=== PATIENT | female | born 1995 | race Caucasian/White ===

== ENCOUNTER 2020-04-03 20:42 | Emergency (ER) | payer BC, OTHER ==
[2020-04-03 20:50] VITALS: BP 120/71
--- NOTE | 2020-04-03 20:54 | ER Document Report ---
ED Medical Screen (RME) - General Chief Complaint: Abdominal Pain Stated Complaint: ABDOMINAL PAIN Time Seen by Provider: 04/03/20 20:50 Primary Care Provider: FRANCK CORREIA NP [Primary Care Provider] - Follow up as needed Mode of Arrival: Ambulatory Information source: Patient Notes: 25-year-old female presented to ED for bilateral pelvic pain. She states her la st menstrual cycle was March 18 through the and the pelvic pain started on the face. She states she has since then gone to her primary care doctor and they were supposed to do a pelvic exam but because she was having the pelvic pain the doctor did some blood work but did not do the pelvic exam told her she was going to send her out for pelvic exam ultrasound. She states she is not gotten back to her she has not had a transvaginal ultrasound and the pain is not getting any better. We will do blood urine and a transvaginal ultrasound tonight and she will be seen by another provider. She states she also started with NuvaRing and she has a clear to white discharge. I have greeted and performed a rapid initial assessment of this patient. A comprehensive ED assessment and evaluation of the patient, analysis of test results and completion of medical decision making process will be conducted by an additional ED providers. TRAVEL OUTSIDE OF THE [place] IN LAST 30 DAYS: No - Related Data Allergies/Adverse Reactions: No Known Allergies Allergy (Unverified 09/12/13 18:30) Past Medical History Psychiatric Medical History: Reports: Hx Anxiety Past Surgical History: Reports: Hx Adenoidectomy, Hx Tonsillectomy - Immunizations Immunizations up to date: Yes Hx Diphtheria, Pertussis, Tetanus Vaccination: No Physical Exam - Vital signs Vitals: Temp Pulse Resp BP Pulse Ox 98.2 F 93 12 120/71 100 04/03/20 20:49 04/03/20 20:49 04/03/20 20:49 04/03/20 20:49 04/03/20 20:49 Course - Vital Signs Vital signs: Temp Pulse Resp BP Pulse Ox 98.2 F 93 12 120/71 100 04/03/20 20:49 04/03/20 20:49 04/03/20 20:49 04/03/20 20:49 04/03/20 20:49 Doctor's Discharge - Discharge Referrals: MASOOD,FRANCK, SOUS CHEF [Primary Care Provider] - Follow up as needed
[2020-04-03 21:17] LABS: ABSOLUTE BASOPHILS # (AUTO) 0.1 10^3/uL (0.0-0.2); ABSOLUTE EOSINOPHILS # (AUTO) 0.2 10^3/uL (0.0-0.6); ABSOLUTE LYMPHOCYTES (AUTO) 2.8 10^3/uL (0.5-4.7); ABSOLUTE MONOCYTES (AUTO) 0.5 10^3/uL (0.1-1.4); ABSOLUTE NEUT (AUTO) 3.8 10^3/uL (1.7-8.2); BASOPHILS % (AUTO) 1.2 % (0-2); EOSINOPHILS % (AUTO) 3.2 % (0-6); HEMATOCRIT 38.5 % (36.0-47.0); HEMOGLOBIN 13.4 g/dL (12.0-15.5); LYMPHOCYTES % (AUTO) 38.1 % (13-45); MEAN CORPUSCULAR HEMOGLOBIN 30.1 pg (27.0-33.4); MEAN CORPUSCULAR HGB CONC 34.9 g/dL (32.0-36.0); MEAN CORPUSCULAR VOLUME 86 fl (80-97); MONOCYTES % (AUTO) 6.2 % (3-13); PLATELET COUNT 222 10^3/uL (150-450); RED BLOOD COUNT 4.47 10^6/uL (3.72-5.28); SEGMENTED NEUTROPHILS % (AUTO) 51.3 % (42-78); TOTAL CELLS COUNTED % (AUTO) 100 %; WHITE BLOOD COUNT 7.3 10^3/uL (4.0-10.5)
[2020-04-03 21:21] LABS: APPEARANCE,URINE CLEAR; BILIRUBIN,URINE NEGATIVE (NEGATIVE); COLOR,URINE YELLOW; GLUCOSE, URINE NEGATIVE (NEGATIVE); KETONES,URINE NEGATIVE (NEGATIVE); LEUKOCYTE ESTERASE,URINE NEGATIVE (NEGATIVE); NITRITE,URINE NEGATIVE (NEGATIVE); PROTEIN,URINE NEGATIVE (NEGATIVE); URINE SPECIFIC GRAVITY 1.015; UROBILINOGEN,URINE NEGATIVE mg/dL (<2.0)
[2020-04-03 21:33] LABS: ALBUMIN 4.9 g/dL (3.5-5.0); ALKALINE PHOSPHATASE 39 U/L (38-126); ANION GAP 10 (5-19); ASPARTATE AMINO TRANSFERASE 20 U/L (14-36); BILIRUBIN,TOTAL 0.3 mg/dL (0.2-1.3); BLOOD UREA NITROGEN 15 mg/dL (7-20); CALCIUM 9.2 mg/dL (8.4-10.2); CARBON DIOXIDE 25 mmol/L (22-30); CHLORIDE 106 mmol/L (98-107); GLUCOSE 137 mg/dL (75-110); POTASSIUM 3.7 mmol/L (3.6-5.0); TOTAL PROTEIN 7.7 g/dL (6.3-8.2)
--- NOTE | 2020-04-03 22:00 | RADIOLOGY REPORT (SQ) ---
Ultrasound pelvis transvaginal on 04/03/2020 at 9:14 PM CLINICAL INDICATION: Pelvic pain since last menstruation COMPARISON: None FINDINGS: Multiple sonographic images are obtained throughout the pelvis by transvaginal approach, both transverse and sagittal images are obtained. The uterus measures approximately 8.0 x 3.7 x 5.5 cm. Endometrial stripe measures 8 mm which is within normal limits. Uterine myometrium appears homogeneous. Small amount of free fluid in the pelvis is likely physiologic. The right ovary measures approximately 2.6 x 2.4 x 1.5 cm. Flow is demonstrated within the right ovary. Left ovary measures approximately 5.0 x 3.2 x 3.4 cm. Within the left ovary there is a simple 2.5 x 2.2 x 2.0 cm dominant follicle which should be considered benign with no follow-up recommended. Flow is demonstrated in the left ovary. IMPRESSION: Essentially unremarkable exam.
--- NOTE | 2020-04-03 22:13 | ER Document Report ---
ED GI/ - General Chief Complaint: Lower Abdominal Pain Stated Complaint: ABDOMINAL PAIN Time Seen by Provider: 04/03/20 20:50 Primary Care Provider: FRANCK CORREIA NP [Primary Care Provider] - Follow up as needed Mode of Arrival: Ambulatory Notes: CHIEF COMPLAINT: Pelvic pain for 1 week HPI: 25-year-old female presenting for evaluation of pelvic pain for 1 week intermittent sharp cramping over the suprapubic region with clear vaginal discharge. Soft GEOGRAPHY INSTRUCTOR who referred the patient for pelvic ultrasound, states mother had history of ovarian cysts. No vaginal bleeding currently. Denies fever nausea vomiting. Denies dysuria ROS: See HPI - all other systems were reviewed and are otherwise negative Constitutional: no fever or recent illness Eyes: no drainage, no blurred vision ENT: no runny nose, no sore throat Cardiovascular: no chest pain Resp: no SOB, no cough GI: no vomiting, no diarrhea : no dysuria, + vaginal discharge, positive pelvic pain Integumentary: no rash Allergy: no hives Musculoskeletal: no extremity pain or swelling Neurological: no numbness/tingling, no weakness MEDICATIONS: I agree with the patient medications as charted by the RN. ALLERGIES: I agree with the allergies as charted by the RN. PAST MEDICAL HISTORY/PAST SURGICAL HISTORY: Reviewed and agree as charted by RN. SOCIAL HISTORY: Reviewed and agree as charted by RN. FAMILY HISTORY: No significant familial comorbid conditions directly related to patient complaint EXAM: Reviewed vital signs as charted by RN. CONSTITUTIONAL: Alert and oriented and responds appropriately to questions. Well-appearing; well-nourished HEAD: Normocephalic; atraumatic EYES: PERRL; Conjunctivae clear, sclerae non-icteric ENT: normal nose; no rhinorrhea; moist mucous membranes; pharynx without lesions noted NECK: Supple without meningismus; non-tender; no cervical lymphadenopathy, no masses CARD: RRR; no murmurs, no clicks, no rubs, no gallops; symmetric distal pulses RESP: Normal chest excursion without splinting or tachypnea; breath sounds clear and equal bilaterally; no wheezes, no rhonchi, no rales, ABD/GI: Normal bowel sounds; non-distended; soft, non-tender, no rebound, no guarding; no palpable organomegaly or masses : Female nurse hot wort settler present. External genitalia normal. No skin lesions noted. Pelvic Exam: No active bleeding. No purulent discharge. Cervix appears normal. No CMT. No lesions or masses. Uterus normal size and non tender. Right/Left adnexa normal size and non tender. BACK: The back appears normal and is non-tender to palpation, there is no CVA tenderness EXT: Normal ROM in all joints; non-tender to palpation; no cyanosis, no effusions, no edema SKIN: Normal color for age and race; warm; dry; good turgor; no acute lesions noted NEURO: Moves all extremities equally; Motor and sensory function intact PSYCH: The patient's mood and manner are appropriate. Grooming and personal hygiene are appropriate. MDM: 25-year-old female presenting for pelvic pain over the last week. Patient noted to have a 2 cm ovarian cyst on the left on ultrasound. Not . Lab work ordered in the triage process negative for acute findings. Awaiting wet prep to rule out vaginitis. Likely to be discharged home to follow-up with her GEOGRAPHY INSTRUCTOR. TRAVEL OUTSIDE OF THE [place] IN LAST 30 DAYS: No - Related Data Allergies/Adverse Reactions: No Known Allergies Allergy (Unverified 09/12/13 18:30) Past Medical History - General Information source: Patient - Social History Smoking Status: Never Smoker Chew tobacco use (# tins/day): No Frequency of alcohol use: None Drug Abuse: None Family History: Reviewed & Not Pertinent Psychiatric Medical History: Reports: Hx Anxiety Past Surgical History: Reports: Hx Adenoidectomy, Hx Tonsillectomy - Immunizations Immunizations up to date: Yes Hx Diphtheria, Pertussis, Tetanus Vaccination: No Physical Exam - Vital signs Vitals: Temp Pulse Resp BP Pulse Ox 98.2 F 93 12 120/71 100 04/03/20 20:49 04/03/20 20:49 04/03/20 20:49 04/03/20 20:49 04/03/20 20:49 Course - Re-evaluation Re-evalutation: 04/03/20 23:12 Patient appears to have vaginitis on her wet prep. Will treat with Flagyl. I spoke with her at length. She has a [employer]ING [employer] HAND for follow-up of the vaginitis and the ovarian cyst - Vital Signs Vital signs: Temp Pulse Resp BP Pulse Ox 98.2 F 93 12 120/71 100 04/03/20 20:50 04/03/20 20:49 04/03/20 20:49 04/03/20 20:49 04/03/20 20:49 - Laboratory Result Diagrams: 04/03/20 21:04 04/03/20 21:04 Laboratory results interpreted by me: 04/03/20 21:04 Glucose 137 H Discharge - Discharge Clinical Impression: Pelvic pain in female, Bacterial vaginitis, Ovarian cyst, left Condition: Stable Disposition: HOME, SELF-CARE Additional Instructions: Follow-up with your GEOGRAPHY INSTRUCTOR for further evaluation of the pelvic pain complaint. It was noted on your ultrasound that you have a small 2 cm cyst on the left ovary. You are also noted to have bacterial vaginitis. Take the Flagyl to t reat the bacterial infection. Take Voltaren for pain and discomfort. Return for onset of fever worsening or uncontrolled pain or problems Prescriptions: Metronidazole [Flagyl 500 mg Tablet] 500 mg PO BID #14 tablet Diclofenac Sodium [Voltaren 50 Mg Tablet.] 50 mg PO BID #20 tablet. Referrals: FRANCK CORREIA, SUBWAY REPAIR SUPERVISOR [Primary Care Provider] - Follow up as needed
[2020-04-03 22:53] LABS: EPITHELIALS (WET MOUNT) 3+ EPITHELIALS SEEN; RBCS (WET MOUNT) RARE RBCS SEEN; T.VAGINALIS (WET MOUNT) NO TRICHOMONAS SEEN; WBCS (WET MOUNT) 1+ WBCS SEEN; YEAST (WET MOUNT) NO YEAST SEEN
[2020-04-03] MEDS ORDERED: METRONIDAZOLE 500 MG TABLET PO ONE (23:12)
[2020-04-04 00:19] LABS: CHLAM PCR NOT DETECTED (NOT DETECT)
== END 2020-04-04 00:51 | disposition home or self-care (01) ==
LOC: ER 20:42
DX: N76.0 Acute vaginitis (principal); B96.89 Other specified bacterial agents as the cause of diseases classified elsewhere; N83.202 Unspecified ovarian cyst, left side; R10.2 Pelvic and perineal pain
CPT/HCPCS: 36415; 76830; 80053; 81001; 84703; 85025; 87210; 87491; 87591; 99284